=== PATIENT | female | born 1945 | race Hispanic/Latino ===

== ENCOUNTER 2017-04-25 07:11 | Day surgery (SDC) | payer MEDICARE, OTHER ==
[2015-07-21 11:28] VITALS: BMI 23.3
[2017-04-25 07:44] VITALS: TEMP 97.9
[2017-04-25] MEDS ORDERED: Propofol 10 mg/ml Inj (20 ML) ONE (08:36)
[2017-04-25] MEDS ORDERED: Sodium Chloride 0.9% 1,000 ML IV SCH (09:30)
[2017-04-25 09:36] VITALS: O2SAT 100
[2017-04-25 10:17] VITALS: BP 137/79; PULSE 70; RESP 16
== END 2017-04-25 11:13 | disposition home or self-care (01) ==
LOC: ENDO 07:11
PROVIDERS: ATTEND Specialist
DX: Z12.11 Encounter for screening for malignant neoplasm of colon (principal); K63.5 Polyp of colon; K57.30 Diverticulosis of large intestine without perforation or abscess without bleeding; K64.8 Other hemorrhoids; Z80.0 Family history of malignant neoplasm of digestive organs; K21.9 Gastro-esophageal reflux disease without esophagitis; I10 Essential (primary) hypertension; M19.90 Unspecified osteoarthritis, unspecified site; F41.9 Anxiety disorder, unspecified; M79.7 Fibromyalgia
CPT/HCPCS: 45380; 88305; J2704; J7040 ×2